=== PATIENT | female | born 1960 | race American Indian/Alaskan Native ===

== ENCOUNTER 2021-09-18 14:10 | Emergency (ER) | payer SELFPAY ==
--- NOTE | 2021-09-18 17:22 | Emergency Department Report ---
ED General Adult HPI - General Chief complaint: Medical Clearance Stated complaint: MED REFILL Source: patient Mode of arrival: Ambulatory Limitations: No Limitations - History of Present Illness Initial comments: 61-year-old female presents to the ED out of her medication x2 weeks. Patient stated she is currently out of her amlodipine 5 mg and hydrochlorothiazide 25 mg. patient states that she moved here from [place] and do not have a primary care doctor. Patient is alert and oriented no acute distress noted. Denies any headache chest pain ,shortness of breath, nausea vomiting or diarrhea. Patient denies any blurry vision. No ill appearance noted. Patient is in ED requesting a medication refill. - Related Data Previous Rx's Medication Instructions Recorded Last Taken Type amLODIPine 5 mg PO DAILY 30 Days #30 tab 09/18/21 Unknown Rx hydroCHLOROthiazide [HCTZ] 25 mg PO QDAY 30 Days #30 tablet 09/18/21 Unknown Rx Allergies Allergy/AdvReac Type Severity Reaction Status Date / Time No Known Allergies Allergy Verified 09/18/21 17:08 ED Review of Systems ROS: Stated complaint: MED REFILL Other details as noted in HPI Constitutional: denies: chills, fever Eyes: denies: eye pain, eye discharge, vision change ENT: denies: ear pain, throat pain Respiratory: denies: cough, shortness of breath, wheezing Cardiovascular: denies: chest pain, palpitations Endocrine: no symptoms reported Gastrointestinal: denies: abdominal pain, nausea, diarrhea Genitourinary: denies: urgency, dysuria, discharge Musculoskeletal: denies: back pain, joint swelling, arthralgia Skin: denies: rash, lesions Neurological: denies: headache, weakness, paresthesias Psychiatric: denies: anxiety, depression Hematological/Lymphatic: denies: easy bleeding, easy bruising ED Past Medical Hx - Social History Smoking Status: Never Smoker Substance Use Type: None - Medications Home Medications: Home Medications Medication Instructions Recorded Confirmed Last Taken Type amLODIPine 5 mg PO DAILY 30 Days #30 tab 09/18/21 Unknown Rx hydroCHLOROthiazide [HCTZ] 25 mg PO QDAY 30 Days #30 tablet 09/18/21 Unknown Rx ED Physical Exam - General Limitations: No Limitations General appearance: alert, in no apparent distress - Head Head exam: Present: atraumatic, normocephalic - Eye Eye exam: Present: normal appearance - ENT ENT exam: Present: mucous membranes moist - Neck Neck exam: Present: normal inspection - Respiratory Respiratory exam: Present: normal lung sounds bilaterally. Absent: respiratory distress - Cardiovascular Cardiovascular Exam: Present: regular rate, normal rhythm. Absent: systolic murmur, diastolic murmur, rubs, gallop - GI/Abdominal GI/Abdominal exam: Present: soft, normal bowel sounds - Extremities Exam Extremities exam: Present: normal inspection - Back Exam Back exam: Present: normal inspection - Neurological Exam Neurological exam: Present: alert, oriented X3 - Psychiatric Psychiatric exam: Present: normal affect, normal mood - Skin Skin exam: Present: warm, dry, intact, normal color. Absent: rash ED Course Vital Signs 09/18/21 09/18/21 09/18/21 16:50 17:06 17:07 Temperature 98.4 F 98.2 F Pulse Rate 72 72 Respiratory 18 20 Rate Blood Pressure 121/76 Blood Pressure 178/102 [Right] O2 Sat by Pulse 99 98 100 Oximetry 09/18/21 17:40 Temperature 98.6 F Pulse Rate 75 Respiratory 20 Rate Blood Pressure Blood Pressure 121/74 [Right] O2 Sat by Pulse 100 Oximetry ED Medical Decision Making - Medical Decision Making 61-year-old female presents to the ED out of her medication x2 weeks. Patient states that she moved here from [place] and do not have a primary care doctor. Patient is alert and oriented no acute distress noted. Denies any headache chest pain ,shortness of breath, nausea vomiting or diarrhea. Patient denies any blurry vision. No ill appearance noted. Patient is in ED requesting a medication refill. Medication refill for amlodipine 5 mg and hydrochlorothiazide 25 mg daily. Physical examination is unremarkable. Patient is to follow-up with primary care doctor. Rechecked the patient is resting quietly quietly and comfortable and feeling better. I discussed the results of diagnostic study, my clinical impression and the plan for further treatment with the patient. Patient agrees with plan and discharge at this present time. All question addressed. I have given the patient instruction regarding a diagnosis ,expectation ,follow- up and return precaution. I explained to the patient that emergent condition may arise and to return to the ED for new worsen and any new persisting condition. I have explained the importance of following up with the primary care physician or referral physician listed below has instructed. The patient verbalized understanding of discharge instruction. Critical care attestation.: If time is entered above; I have spent that time in minutes in the direct care of this critically ill patient, excluding procedure time. ED Disposition Clinical Impression: Medication refill Disposition: 01 HOME / SELF CARE / HOMELESS Is pt being admited?: No Does the pt Need Aspirin: No Condition: Stable Instructions: Medicine Refill at the Emergency Department, Hypertension, Adult, [id number] Additional Instructions: Follow-up with primary care doctor Take medication as prescribed Return to ED for any worsening symptom Prescriptions: amLODIPine 5 mg PO DAILY 30 Days #30 tab hydroCHLOROthiazide [HCTZ] 25 mg PO QDAY 30 Days #30 tablet Referrals: PRIMARY CARE, [Primary Care Provider] - 3-5 Days [facility] [Provider Group] - 3-5 Days Forms: Work/School Release Form(ED)
[2021-09-18 17:41] VITALS: BP 121/74
== END 2021-09-18 17:39 | disposition home or self-care (01) ==
LOC: ED 14:10
DX: Z76.0 Encounter for issue of repeat prescription (principal)
CPT/HCPCS: 99282